=== PATIENT | female | born 1980 ===

== ENCOUNTER 2017-07-03 18:32 | Emergency (ER) | payer SELFPAY ==
[2017-07-03] MEDS ORDERED: Alum-Mag Hydrox-Simethicone Susp (30 mL) PO STA (19:29)
--- NOTE | 2017-07-03 20:01 | ED PDOC ---
HPI: Abdomen Time Seen by Provider: 07/03/17 19:22 Chief Complaint (Nursing): GI Problem Past Medical History Vital Signs: Last Vital Signs Temp 99 F 07/03/17 18:35 Pulse 84 07/03/17 18:35 Resp 18 07/03/17 18:35 BP 112/69 07/03/17 18:35 Pulse Ox 100 07/03/17 18:35 - Allergies Allergies/Adverse Reactions: Allergies Allergy/AdvReac Type Severity Reaction Status Date / Time No Known Allergies Allergy Verified 07/03/17 18:34 - ECG O2 Sat by Pulse Oximetry: 100 Disposition - Clinical Impression Clinical Impression: Bleach ingestion - Patient ED Disposition Is Patient to be Admitted: No Counseled Patient/Family Regarding: Diagnosis, Need For Followup - Disposition Disposition: Routine/Home Disposition Time: 20:01 Condition: GOOD
[2017-07-03 20:33] VITALS: BP 118/72; PULSE 88; RESP 17; TEMP 98.8; O2SAT 98
== END 2017-07-03 20:33 | disposition home or self-care (01) ==
LOC: H.ER 18:32
DX: T50.901A Poisoning by unspecified drugs, medicaments and biological substances, accidental (unintentional), initial encounter (principal); R11.10 Vomiting, unspecified
CPT/HCPCS: 96372; 99283; J2405